=== PATIENT | female | born 1990 | race Caucasian/White ===

== ENCOUNTER 2023-11-08 04:15 | Inpatient (IN) | payer BC, OTHER ==
[2023-11-08 05:50] VITALS: BMI 39.9
[2023-11-08] MEDS: ELECTROLYTE-148 SOLN 500 ML IV ONE (06:40)
[2023-11-08 07:34] LABS: BASO % 0.2 % (0-2.0); EOS % 0.1 % (0-4.5); HEMATOCRIT 39.5 % (32.4-45.2); LYMPH % 10.2 % (8-40); MCH 31.6 pg (25.7-33.7); MCHC 35.4 g/dl (32.0-36.0); MEAN CELL VOLUME 89.2 fl (80-96); MEAN PLT VOLUME 9.7 fl (7.5-11.1); MONO % 3.5 % (3.8-10.2); PLATELET COUNT 169 10^3/uL (134-434); RBC 4.43 M/mm3 (3.60-5.2); RDW 14.3 % (11.6-15.6); WHITE BLOOD COUNT 10.3 K/mm3 (4.0-10.0)
[2023-11-08] MEDS ORDERED: FENTANYL CITRATE/PF 50 MCG/ML VIAL ONE ×2 (07:45→22:06)
[2023-11-08] MEDS ORDERED: FENTANYL/BUPIVACAINE/NS/PF - PCEA - 50 ML DISP.SYRIN EP ONE ×5 (07:48→22:40)
[2023-11-08 07:53] LABS: POTASSIUM 4.5 mmol/L (3.5-5.1)
[2023-11-08 07:54] LABS: CALCIUM 8.6 mg/dL (8.5-10.1)
[2023-11-08 07:58] LABS: CREATININE 0.6 mg/dL (0.55-1.3)
[2023-11-08] MEDS: FENTANYL/BUPIVACAINE/NS/PF - PCEA - 50 ML DISP.SYRIN EP SCH (08:02)
[2023-11-08 08:16] LABS: INR 0.92 (0.83-1.09); PROTHROMBIN TIME (PATIENT) 10.6 SEC (9.7-13.0)
[2023-11-08 08:19] LABS: ACTIVATED PTT 28.3 SECONDS (25.2-36.5)
[2023-11-08] MEDS: ELECTROLYTE-148 SOLN 1,000 ML IV SCH (09:21)
[2023-11-08] MEDS ORDERED: NALOXONE HCL 0.4 MG/ML VIAL IVPUSH PRN (09:33)
[2023-11-08 12:23] LABS: HIV INTERPRETATION NEGATIVE (NEGATIVE)
[2023-11-08] MEDS: PROMETHAZINE HCL 25 MG/1 ML VIAL IVPB ONE (12:45)
[2023-11-08] MEDS: BUTORPHANOL TARTRATE 2 MG/ML VIAL IVPB ONE (12:45)
[2023-11-08] MEDS ORDERED: ELECTROLYTE-148 SOLN 1,000 ML IV SCH (19:45)
[2023-11-08] MEDS ORDERED: OXYTOCIN 30 UNITS in 0.9% NS 30 UNIT/500 ML INFUS.BAG IVPB ONE (19:52)
[2023-11-08] MEDS: OXYTOCIN 30 UNITS in 0.9% NS 30 UNIT/500 ML INFUS.BAG IVPB SCH (21:45)
[2023-11-09] MEDS ORDERED: OXYTOCIN 20 UNITS in 0.9% NS 20 UNIT/1,000 ML INFUS.BAG IV ONE (00:35)
[2023-11-09] MEDS: OXYTOCIN 20 UNITS in 0.9% NS 20 UNIT/1,000 ML INFUS.BAG IV SCH (03:00)
[2023-11-09] MEDS ORDERED: METHYLERGONOVINE MALEATE 0.2 MG/1 ML AMP IM PRN (03:33)
[2023-11-09] MEDS ORDERED: BISACODYL 10 MG SUPP.RECT RC PRN (03:33)
[2023-11-09] MEDS ORDERED: oxyCODONE HCL 5 MG TABLET PO PRN (03:33)
[2023-11-09] MEDS ORDERED: IBUPROFEN 600 MG TABLET (FP) PO ONE (04:37)
[2023-11-09] MEDS: IBUPROFEN 600 MG TABLET (FP) PO PRN (05:00)
[2023-11-09] MEDS: WITCH HAZEL 50% (TUCKS) 40 PAD/JAR PAD TP PRN (05:32)
[2023-11-09] MEDS: BENZOCAINE 20% 57 GM BOTTLE TP PRN (05:32)
[2023-11-09] MEDS: FERROUS SO4 325 MG TABLET (FP) PO SCH (09:42)
[2023-11-09] MEDS: PRENATAL VITAMINS W/ FOLIC ACID TABLET (FP) PO SCH (09:42)
[2023-11-09 15:30] VITALS: RESP 18
[2023-11-09] MEDS: ACETAMINOPHEN 325 MG TABLET (FP) PO PRN (23:05)
[2023-11-10 07:57] LABS: BASO % 0.2 % (0-2.0); EOS % 0.4 % (0-4.5); HEMATOCRIT 34.8 % (32.4-45.2); HEMOGLOBIN 11.8 GM/dL (10.7-15.3); LYMPH % 17.3 % (8-40); MCH 31.2 pg (25.7-33.7); MEAN CELL VOLUME 91.9 fl (80-96); MEAN PLT VOLUME 9.4 fl (7.5-11.1); MONO % 7.5 % (3.8-10.2); NEUT % 74.6 % (42.8-82.8); PLATELET COUNT 145 10^3/uL (134-434); RBC 3.78 M/mm3 (3.60-5.2); RDW 14.3 % (11.6-15.6); WHITE BLOOD COUNT 9.3 K/mm3 (4.0-10.0)
[2023-11-10] MEDS: BENZOCAINE 28 GM HEMORRHOIDAL OINTMENT TP PRN (08:39)
[2023-11-10] MEDS: DIPHTH,PERTUSS(ACELL),TET 0.5 ML DISP.SYRIN IM ONE (12:09)
[2023-11-10 13:38] LABS: POC NITRAZINE POS
[2023-11-10] MEDS ORDERED: SENNOSIDES/DOCUSATE COMBO (SENNA PLUS) TABLET (UD) PO PRN (22:00)
[2023-11-10] MEDS: CEFAZOLIN SODIUM 2 GM in DEXTROSE 5%-WATER 100 ML IVPB SCH (23:00)
[2023-11-11 09:00] VITALS: BP 94/56; PULSE 103; TEMP 99
== END 2023-11-11 15:05 | disposition home or self-care (01) | DRG 807 ==
LOC: JDEL 04:15 → JLDR 04:50 → J3W 11-09 05:29
PROVIDERS: ADMIT Obstetrics & Gynecology; ATTEND Obstetrics & Gynecology
PROC: 10D07Z6 Extraction of Products of Conception, Vacuum, Via Natural or Artificial Opening (ICD-10-PCS; principal; 2023-11-09)
PROC: 0W8NXZZ Division of Female Perineum, External Approach (ICD-10-PCS; 2023-11-09)
DX: O48.0 Post-term pregnancy (principal); Z37.0 Single live birth; Z3A.40 40 weeks gestation of pregnancy; O66.5 Attempted application of vacuum extractor and forceps
CPT/HCPCS: 36415; 59409; 80048; 83986-QW; 85025; 85610; 85730; 86780; 86803; 86850; 86900; 86901; 87389; 90715